=== PATIENT | male | born 1950 | race Caucasian/White ===

== ENCOUNTER 2018-08-27 08:30 | Inpatient (IN) | payer OTHER, MEDICARE ==
--- NOTE | 2018-08-22 13:28 | Diagnostic Imaging Report ---
Chest, 2 views, 08/22/2018. History: Preop, hip replacement surgery. Comparison: 07/08/2012. Findings: The cardiomediastinal silhouette and pulmonary vasculature are within normal limits. The lungs are clear without evidence of consolidation or pleural effusion. Degenerative changes are present within the thoracic spine. There are no acute osseous or soft tissue abnormalities. Impression: No acute cardiopulmonary abnormality. Signed by: Himanshu Brito on 08/22/2018 1:25 PM
[~2018-08-27] VITALS: Ht 185.4 cm; Wt 98.9 kg
[~2018-08-27 08:30] MED LIST: ALLOPURINOL100 MG PO; ALTACE10 M1 PO; ASPIR 8181 MG PO; ATORVASTATIN CA20 MG PO; GABAPENTIN300 MG PO; GLUCOPHAGE1000 MG PO; KLONOPIN2 MG PO; MULTIVITAMINS1 EAC7 PO; PRILOSEC20 MG PO; ROPIVACAINE 246.25 MG, EPINEPHRINE HCL 1:1000 1ML 0.5 MG, CLONIDINE HCL 0.08 MG, KETORO... INJ ONE; VITAMIN B-121000 MCG PO; VITAMIN D35000 UNIT PEG
[2018-08-27] MEDS ORDERED: TRANEXAMIC ACID 1,000 MG/10 ML ML ONE (08:39)
[2018-08-27] MEDS ORDERED: BACITRACIN 50,000 UNIT VIAL ONE (08:39)
--- OUTSIDE RECORDS SUMMARY | 2018-08-27 08:39 | XMS REPORT | Summary of Care ---
Author Organization Unknown Address Unknown Phone Unavailable Encounter [facility] Thais(ALFRED) [id number] Date(s): 11/01/13 - 11/01/[address] [facility] [address] [address] Discharge Diagnosis: Shortness of breath Discharge Diagnosis: Cough Discharge Disposition: Home Physician Attending: Cosme Valentine MD Reason for Visit DIFFICULTY BREATHING Vital Signs 1 2 3 Most recent to oldest [Reference Range]: 185.42 cm (11/01/13 12:58 AM) Height 98.0 DegF (11/01/13 3:46 AM) 97.9 DegF (11/01/13 1:47 AM) 97.8 DegF (11/01/13 12:58 AM) Temperature Oral [96.4-99.1 DegF] 146 mmHg *HI* (11/01/13 3:46 AM) 159 mmHg *HI* (11/01/13 1:47 AM) 167 mmHg *HI* (11/01/13 12:58 AM) Systolic Blood Pressure [90-140 mmHg] 88 mmHg (11/01/13 3:46 AM) 96 mmHg *HI* (11/01/13 1:47 AM) 90 mmHg (11/01/13 12:58 AM) Diastolic Blood Pressure [60-90 mmHg] 18 BRMIN (11/01/13 3:46 AM) 19 BRMIN (11/01/13 2:27 AM) 20 BRMIN (11/01/13 1:47 AM) Respiratory Rate [14-20 BRMIN] 96 bpm (11/01/13 3:46 AM) 84 bpm (11/01/13 1:47 AM) 87 bpm (11/01/13 12:58 AM) Peripheral Pulse Rate [60-100 bpm] 104.545 kg (11/01/13 12:58 AM) Weight 30.41 m2 (11/01/13 12:58 AM) Body Mass Index Problem List Condition Effective Dates Status Health Status Informant Chest 12/12/10 Active pain(Confirmed) Diabetes Active mellitus(Confirmed) DM (diabetes Resolved mellitus)(Confirmed) HTN - Active Hypertension(Confirm ed) Allergies, Adverse Reactions, Alerts Substance Reaction Severity Status codeine Active Medications DuoNeb inhalation solution 3 ml, Route: INHALATION, Drug Form: SOLN, Dosing Weight 104.545, kg, PRN, PRN Re spiratory Protocol, Start date: 11/01/13 2:17:00, Duration: 30 day, Stop date: 0 12/01/13 2:16:00 Notes: (Same as: Duoneb) Start Date: 11/01/13 Stop Date: 11/01/13 Status: Discontinued GI cocktail 30 mL, Route: PO, Dosing Weight 104.545, kg, ONCE, STAT, Start date: 11/01/13 3: 33:00, Stop date: 11/01/13 3:33:00 Start Date: 11/01/13 Stop Date: 11/01/13 Status: Completed Results ELECTROLYTES 1 2 3 Most recent to oldest [Reference Range]: 138 mEq/L (11/01/13 2:40 AM) Sodium Lvl [135-145 mEq/L] 3.8 mEq/L (11/01/13 2:40 AM) Potassium Lvl [3.5-5.1 mEq/L] 102 mEq/L (11/01/13 2:40 AM) Chloride Lvl [95-109 mEq/L] 25 mEq/L (11/01/13 2:40 AM) CO2 [24-32 mEq/L] 14.8 mEq/L (11/01/13 2:40 AM) AGAP [10.0-20.0 mEq/L] CHEM PANEL 1 2 3 Most recent to oldest [Reference Range]: 1.0 mg/dL (11/01/13 2:40 AM) Creatinine Lvl [0.5-1.4 mg/dL] 80 mL/min/1.73m2 1 *NA* (11/01/13 2:40 AM) eGFR 11 mg/dL (11/01/13 2:40 AM) BUN [7-22 mg/dL] 11 (11/01/13 2:40 AM) B/C Ratio [6-25] 154 mg/dL 2 *HI* (11/01/13 2:40 AM) Glucose Lvl [70-99 mg/dL] 6.6 g/dL (11/01/13 2:40 AM) Total Protein [6.4-8.4 g/dL] 3.8 g/dL (11/01/13 2:40 AM) Albumin Lvl [3.5-5.0 g/dL] 2.8 g/dL (11/01/13 2:40 AM) Globulin [2.0-4.0 g/dL] 1.4 (11/01/13 2:40 AM) A/G Ratio [0.7-1.6] 8.2 mg/dL *LOW* (11/01/13 2:40 AM) Calcium Lvl [8.5-10.5 mg/dL] 43 unit/L (11/01/13 2:40 AM) ALT [0-65 unit/L] 19 unit/L (11/01/13 2:40 AM) AST [0-37 unit/L] 65 unit/L (11/01/13 2:40 AM) Alk Phos [39-136 unit/L] 0.4 mg/dL (11/01/13 2:40 AM) Bili Total [0.2-1.3 mg/dL] 1Result Comment: The eGFR is calculated using the CKD-EPI formula. In most young, healthy individuals the eGFR will be >90 mL/min/1.73m2. The eGFR declines with age. An eGFR of 60-89 may be normal in some populations, particularly the elderly, for whom the CKD-EPI formula has not been extensively validated. Use of the eGFR is not recommended in the following populations: Individuals with unstable creatinine concentrations, including patients and those with serious co-morbid conditions. Patients with extremes in muscle mass or diet. The data above are obtained from the National Kidney Disease Education Program ( NKDEP) which additionally recommends that when the eGFR is used in patients with extremes of body mass index for purposes of drug dosing, the eGFR should be mul tiplied by the estimated BMI. 2Interpretive Data: Adult reference range values reflect the clinical guidelines of the [employer] [employer]. CARDIAC ENZYMES 1 2 3 Most recent to oldest [Reference Range]: 180 unit/L (11/01/13 5:43 AM) 160 unit/L (11/01/13 2:40 AM) Total CK [12-191 unit/L] 4.6 ng/mL *HI* (11/01/13 5:43 AM) 4.9 ng/mL *HI* (11/01/13 2:40 AM) CK MB [0.5-3.6 ng/mL] 3.1 *HI* (11/01/13 2:40 AM) CK MB Index [0.0-2.5] <0.02 ng/mL (11/01/13 5:43 AM) <0.02 ng/mL (11/01/13 2:40 AM) <0.02 ng/mL (11/01/13 2:40 AM) Troponin-I [0.00-0.40 ng/mL] TOXICOLOGY 1 2 3 Most recent to oldest [Reference Range]: .134 % 3 *NA* (11/01/13 2:40 AM) Etoh (%) 134 mg/dL 4 *NA* (11/01/13 2:40 AM) Ethanol Lvl 3Interpretive Data: Ethanol testing results should be used for medical purposes only. Negative Range: <0.003% Toxic Range: >0.25% 4Interpretive Data: Negative Range: <3 mg/dL Toxic Range: >250 mg/dL HEMATOLOGY 1 2 3 Most recent to oldest [Reference Range]: 5.1 K/CMM (11/01/13 2:40 AM) WBC [3.7-10.4 K/CMM] 4.39 M/CMM *LOW* (11/01/13 2:40 AM) RBC [4.70-6.10 M/CMM] 14.3 g/dL (11/01/13 2:40 AM) Hgb [14.0-18.0 g/dL] 41.9 % *LOW* (11/01/13 2:40 AM) Hct [42.0-54.0 %] 95.5 fL *HI* (11/01/13 2:40 AM) MCV [80.0-94.0 fL] 32.5 pg *HI* (11/01/13 2:40 AM) MCH [27.0-31.0 pg] 34.0 g/dL (11/01/13 2:40 AM) MCHC [32.0-36.0 g/dL] 13.2 % (11/01/13 2:40 AM) RDW [11.5-14.5 %] 198 K/CMM (11/01/13 2:40 AM) Platelet [133-450 K/CMM] 7.5 fL (11/01/13 2:40 AM) MPV [7.4-10.4 fL] 60.3 % (11/01/13 2:40 AM) Segs [45.0-75.0 %] 27.5 % (11/01/13 2:40 AM) Lymphocytes [20.0-40.0 %] 10.4 % (11/01/13 2:40 AM) Monocytes [2.0-12.0 %] 1.2 % (11/01/13 2:40 AM) Eosinophils [0.0-4.0 %] 0.6 % (11/01/13 2:40 AM) Basophils [0.0-1.0 %] 3.1 K/CMM (11/01/13 2:40 AM) Segs-Bands # [1.5-8.1 K/CMM] 1.4 K/CMM (11/01/13 2:40 AM) Lymphocytes # [1.0-5.5 K/CMM] 0.5 K/CMM (11/01/13 2:40 AM) Monocytes # [0.0-0.8 K/CMM] 0.1 K/CMM (11/01/13 2:40 AM) Eosinophils # [0.0-0.5 K/CMM] 13.1 seconds (11/01/13 2:40 AM) PT [12.0-14.7 seconds] 1.00 5 (11/01/13 2:40 AM) INR [0.85-1.17] 0.55 ug/mL FEU 6 *NA* (11/01/13 2:40 AM) D-Dimer 29.9 seconds 7 (11/01/13 2:40 AM) PTT [22.9-35.8 seconds] 5Interpretive Data: RECOMMENDED RANGES FOR PROTIME INR: 2.0-3.0 for most medical and surgical thromboembolic states. 2.5-3.5 for artificial heart valves and recurrent embolism. INR SHOULD BE USED ONLY FOR PATIENTS ON STABLE ANTICOAGULANT THERAPY. 6Interpretive Data: In DIC, quantitative D-Dimer is generally greater than 0.66 ug/mL FEU. Values of quantitative D-Dimer less than 0.40 ug/mL FEU have been reported to be associated with a low probability of deep vein thrombosis/pulmonary embolism. This test alone should not be used to rule out DVT/PE. 7Interpretive Data: Heparin Therapeutic Range: 57 - 92 Seconds Medications Administered During Your Visit No data available for this section Immunizations No data available for this section
--- OUTSIDE RECORDS SUMMARY | 2018-08-27 08:39 | XMS REPORT | Continuity of Care Document ---
Author Author [facility] Interface Address Unknown Phone Unavailable Problems Problem Status Onset Date Classification Date Reported Comments Source Discharge Diagnosis: Shortness of breath 11/01/2013 11/03/2013 [facility] Discharge Diagnosis: Cough 11/01/2013 11/03/2013 [facility] DIFFICULTY BREATHING Active 10/31/2013 [facility] SHORTNESS OF BREATH Active 12/13/2010 [facility] CHEST PAIN Active 12/13/2010 [facility] Chest pain Active 12/12/2010 Problem 11/03/2013 [facility] Diabetes mellitus Active Problem 11/03/2013 [facility] DM (<span ID="[id number]">Confirmed</span>) Resolved Problem 11/03/2013 [facility] HTN - Hypertension Active Problem 11/03/2013 [facility] Medications Medication Details Route Status Patient Instructions Ordering Provider Order Date Source GI cocktail 30 mL, Route: PO, Dosing Weight 104.545, kg, ONCE, STAT, Start date: 11/01/13 3:33:00, Stop date: 11/01/13 3:33:00 Inactive 11/01/2013 [facility] Albuterol 0.833 MG/ML / Ipratropium [place] 0.167 MG/ML Inhalant Solution [DuoNeb] 3 ml, Route: INHALATION, Drug Form: SOLN, Dosing Weight 104.545, kg, PRN, PRN Respiratory Protocol, Start date: 11/01/13 2:17:00, Duration: 30 day, Stop date: 12/01/13 2:16:00Notes: (Same as: Duoneb) Inactive 11/01/2013 [facility] Allergies, Adverse Reactions, Alerts Substance Category Reaction Severity Reaction type Status Date Reported Comments Source codeine Assertion Drug allergy Active [facility] Immunizations Immunization Date Given Site Status Last Updated Comments Source Results Order Name Results Value Reference Range Date Interpretation Comments Source CARDIAC ENZYMES CK MB 4.6 ng/mL 0.5 - 3.6 11/01/2013 [facility] CARDIAC ENZYMES Total CK 180 unit/L 12 - 191 11/01/2013 [facility] CARDIAC ENZYMES Troponin-I null 0.00 - 0.40 11/01/2013 [facility] CARDIAC ENZYMES CK MB Index 3.1 0.0 - 2.5 11/01/2013 [facility] CARDIAC ENZYMES CK MB 4.9 ng/mL 0.5 - 3.6 11/01/2013 [facility] CARDIAC ENZYMES Total CK 160 unit/L 12 - 191 11/01/2013 [facility] CARDIAC ENZYMES Troponin-I null 0.00 - 0.40 11/01/2013 [facility] CARDIAC ENZYMES Troponin-I null 0.00 - 0.40 11/01/2013 [facility] CHEM PANEL eGFR 80 mL/min/1.73m2 11/01/2013 1Result Comment: The eGFR is calculated using [...] from the National Kidney Disease Education Program (NKDEP) which additionally recommends that when the eGFR is used in patients with extremes of body mass index for purposes of drug dosing, the eGFR should be multiplied by the estimated BMI. [facility] CHEM PANEL Bili Total 0.4 mg/dL 0.2 - 1.3 11/01/2013 [facility] CHEM PANEL Alk Phos 65 unit/L 39 - 136 11/01/2013 [facility] CHEM PANEL CO2 25 meq/L 24 - 32 11/01/2013 [facility] CHEM PANEL Creatinine Lvl 1.0 mg/dL 0.5 - 1.4 11/01/2013 [facility] CHEM PANEL Potassium Lvl 3.8 meq/L 3.5 - 5.1 11/01/2013 [facility] CHEM PANEL Sodium Lvl 138 meq/L 135 - 145 11/01/2013 [facility] CHEM PANEL Chloride Lvl 102 meq/L 95 - 109 11/01/2013 [facility] CHEM PANEL Calcium Lvl 8.2 mg/dL 8.5 - 10.5 11/01/2013 [facility] CHEM PANEL Total Protein 6.6 g/dL 6.4 - 8.4 11/01/2013 [facility] CHEM PANEL Albumin Lvl 3.8 g/dL 3.5 - 5.0 11/01/2013 [facility] CHEM PANEL ALT 43 unit/L 0 - 65 11/01/2013 [facility] CHEM PANEL AST 19 unit/L 0 - 37 11/01/2013 [facility] CHEM PANEL BUN 11 mg/dL 7 - 22 11/01/2013 [facility] CHEM PANEL Glucose Lvl 154 mg/dL 70 - 99 11/01/2013 2Interpretive Data: Adult reference range values reflect the clinical guidelines of the [place] [employer]. [facility] CHEM PANEL B/C Ratio 11 6 - 25 11/01/2013 [facility] CHEM PANEL AGAP 14.8 meq/L 10.0 - 20.0 11/01/2013 [facility] CHEM PANEL Globulin 2.8 g/dL 2.0 - 4.0 11/01/2013 [facility] CHEM PANEL A/G Ratio 1.4 0.7 - 1.6 11/01/2013 [facility] PTT 29.9 s 22.9 - 35.8 11/01/2013 7Interpretive Data: Heparin Therapeutic Range: 57 - 92 Seconds [facility] PT 13.1 s 12.0 - 14.7 11/01/2013 [facility] INR 1.00 0.85 - 1.17 11/01/2013 5Interpretive Data: RECOMMENDED RANGES FOR PROTIME INR: 2.0-3.0 for most medical and surgical thromboembolic states. 2.5-3.5 for artificial heart valves and recurrent embolism. INR SHOULD BE USED ONLY FOR PATIENTS ON STABLE ANTICOAGULANT THERAPY. [facility] D-Dimer 0.55 ug/mL FEU 11/01/2013 6Interpretive Data: In DIC, quantitative D-Dimer is generally greater than 0.66 ug/mL FEU. Values of quantitative D-Dimer less than 0.40 ug/mL FEU have been reported to be associated with a low probability of deep vein thrombosis/pulmonary embolism. This test alone should not be used to rule out DVT/PE. [facility] Hct 41.9 % 42.0 - 54.0 11/01/2013 [facility] MCH 32.5 pg 27.0 - 31.0 11/01/2013 [facility] MCHC 34.0 g/dL 32.0 - 36.0 11/01/2013 [facility] MPV 7.5 fL 7.4 - 10.4 11/01/2013 [facility] Platelet 198 K/CMM 133 - 450 11/01/2013 [facility] RDW 13.2 % 11.5 - 14.5 11/01/2013 [facility] Hgb 14.3 g/dL 14.0 - 18.0 11/01/2013 [facility] RBC 4.39 M/CMM 4.70 - 6.10 11/01/2013 [facility] WBC 5.1 K/CMM 3.7 - 10.4 11/01/2013 [facility] MCV 95.5 fL 80.0 - 94.0 11/01/2013 [facility] Eosinophils # 0.1 K/CMM 0.0 - 0.5 11/01/2013 [facility] Monocytes # 0.5 K/CMM 0.0 - 0.8 11/01/2013 [facility] Lymphocytes # 1.4 K/CMM 1.0 - 5.5 11/01/2013 [facility] Segs 60.3 % 45.0 - 75.0 11/01/2013 [facility] Lymphocytes 27.5 % 20.0 - 40.0 11/01/2013 [facility] Basophils 0.6 % 0.0 - 1.0 11/01/2013 [facility] Eosinophils 1.2 % 0.0 - 4.0 11/01/2013 [facility] Monocytes 10.4 % 2.0 - 12.0 11/01/2013 [facility] Segs-Bands # 3.1 K/CMM 1.5 - 8.1 11/01/2013 [facility] Etoh (%) 0.134 % 11/01/2013 3Interpretive Data: Ethanol testing results should be used for medical purposes only. Negative Range: <0.003% Toxic Range: >0.25% [facility] TOXICOLOGY Ethanol Lvl 134 mg/dL 11/01/2013 4Interpretive Data: Negative Range: <3 mg/dL Toxic Range: >250 mg/dL [facility] Chest w contrast CT Chest w contrast CT NAME: RADHA HORNER : 1950 SEX: M Ordering Physician: Senait Hahn CT chest with contrast with high-resolution imaging through the pulmonary arteries during early portion of the contrast bolus: Nov 01, 2013 04:00:00 AM. CLINICAL INDICATION: Chest pain. Comparison Examination: 12/13/2010. FINDINGS: No evidence for pulmonary embolism. The tracheobronchial tree is unremarkable. No parenchymal lung abnormality identified bilaterally and no significant pleural effusion bilaterally. Calcified right hilar nodes. No mediastinal, hilar or axillary adenopathy. Small amount of calcification noted along the great vessels and small amount of coronary artery calcification. No evidence for thoracic aortic aneurysm or thoracic aortic dissection. Upper abdominal aortic calcification. No pericardial abnormality identified. Cholelithiasis. Small nonspecific portocaval node is similar to prior study. Right renal artery calcification. Views of the upper abdomen are otherwise unremarkable. CONCLUSIONS: 1. No evidence for pulmonary embolism. 2. Vascular calcification in the chest and upper abdomen as above. 3. Cholelithiasis. SL: 11/01/2013 - - Read by: Himanshu Ferrari MD Dictated Date/time: 11/01/13 04:20 Electronically Signed by: Himanshu Ferrari MD 11/01/13 04:55 FINAL REPORT [facility] Chest 2 views Chest 2 views NAME: RADHA HORNER : 1950 SEX: M Ordering Physician: Senait Hahn Chest 2 views : Nov 01, 2013 01:54:00 AM. CLINICAL INDICATION: Abnormal chest sounds. Comparison Examination: 12/13/2010. FINDINGS: Cardiac and mediastinal structures are stable. Degenerative changes seen about the thoracic spine. No focal infiltrate identified within the lungs, no edema, no pleural effusions and no pneumothorax. SL: 14 11/01/2013 - - Read by: Himanshu Ferrari MD Dictated Date/time: 11/01/13 02:02 Electronically Signed by: Himanshu Ferrari MD 11/01/13 02:04 FINAL REPORT [facility] Vital Signs Vital Sign Value Date Comments Source Systolic (mm Hg) 146 11/01/2013 [facility] Diastolic (mm Hg) 88 11/01/2013 [facility] Temperature Oral (F) 98.0 F 11/01/2013 [facility] Respitory Rate 18 11/01/2013 [facility] Heart Rate 96 11/01/2013 [facility] Respitory Rate 19 11/01/2013 [facility] Temperature Oral (F) 97.9 F 11/01/2013 [facility] Heart Rate 84 11/01/2013 [facility] Systolic (mm Hg) 159 11/01/2013 [facility] Respitory Rate 20 11/01/2013 [facility] Diastolic (mm Hg) 96 11/01/2013 [facility] Height 185.42 cm 11/01/2013 [facility] Weight 104.545 11/01/2013 [facility] BMI Calculated 30.41 11/01/2013 [facility] Temperature Oral (F) 97.8 F 11/01/2013 [facility] Heart Rate 87 11/01/2013 [facility] Diastolic (mm Hg) 90 11/01/2013 [facility] Systolic (mm Hg) 167 11/01/2013 [facility] Encounters Location Location Details Encounter Type Encounter Number Reason For Visit Attending Provider ADM Date DC Date Status Source [facility] OU [id number] CHEST PAIN BETY LIGHT 12/13/2010 12/13/2010 Active [facility] [id number] Cosme Valentine 11/01/2013 11/01/2013 [facility] Procedures Procedure Code Date Perfomer Comments Source
--- OUTSIDE RECORDS SUMMARY | 2018-08-27 08:39 | XMS REPORT ---
Author [facility] Address Unknown Phone Unavailable Care Team Providers Care Mail Deliverer Name Role Phone ELVA NAVARRO Unavailable Unavailable Problems This patient has no known problems. Allergies, Adverse Reactions, Alerts This patient has no known allergies or adverse reactions. Medications This patient has no known medications. Results Test Description Test Time Test Comments Text Results Atomic Results Result Comments CHEST 2 VIEWS 2018-08-22 13:24:00 [place] [address] Patient Name: RADHA HORNER MR #: [id number] : 1950 Age/Sex: 68/M Req #: [id number] Adm Physician: Ordered by: ELVA NAVARRO MD Report #: [id number] Location: OR Room/Bed: Procedure: [id number] DX/CHEST 2 VIEWS Exam Date: 08/22/18 Exam Time: 1251 REPORT STATUS: Signed Chest, 2 views, 08/22/2018. History: Preop, hip re placement surgery. Comparison: 07/08/2012. Findings: The cardiomediastinal silhouette and pulmonary vasculature are within normal limits. The lungs are clear without evidence of consolidation or pleural effusion. Degenerative changes are present within the thoracic spine. There are no acute osseous or soft tissue abnormalities. Impression: No acute cardiopulmonary abnormality. Signed by: Beth Brito on 08/22/2018 1:25 PM Dictated By: BETH BRITO MD 132 Transcribed By: MARY ANN on 08/22/181324 COPY TO: ELVA NAVARRO MD
[2018-08-27] MEDS ORDERED: SODIUM CHLORIDE 0.9% 500ML 500 ML ONE (08:40)
[2018-08-27] MEDS ORDERED: VITAMIN D1000 UNI1 PO (09:07)
[2018-08-27] MEDS ORDERED: CELECOXIB 200 MG CAP ONE (09:24)
[2018-08-27] MEDS ORDERED: CEFAZOLIN SOD 2 GM/D5W 50ML 50 ML IV ONE (09:24)
[2018-08-27] MEDS ORDERED: GABAPENTIN 300 MG CAP ONE (09:24)
[2018-08-27] MEDS ORDERED: DEXAMETHASONE SOD PHOS 10 MG/1 ML VIAL ONE (09:24)
[2018-08-27 09:25] LABS: BASOPHILS % 0.3 % (0.0-1.0); EOSINOPHILS # (AUTO) 0.1 (0.0-0.4); EOSINOPHILS % 1.4 % (0.0-6.0); HEMATOCRIT 40.5 % (38.2-49.6); HEMOGLOBIN 14.4 g/dL (14.0-18.0); LYMPHOCYTES # (AUTO) 1.5 (1.0-3.2); MEAN CORPUSCULAR HEMOGLOBIN 33.4 pg (28-32); MEAN CORPUSCULAR HGB CONC 35.6 g/dL (31-35); MONOCYTES # (AUTO) 0.5 (0.2-0.8); MONOCYTES % 8.5 % (4.4-11.3); NEUTROPHILS # (AUTO) 4.2 (2.1-6.9); NEUTROPHILS % 66.5 % (38.7-80.0); PLATELET COUNT 217 x10e3/uL (140-360); RED BLOOD COUNT 4.31 x10e6/uL (4.3-5.7); RED CELL DISTRIBUTION WIDTH 12.4 % (11.7-14.4)
[2018-08-27 09:46] LABS: ALANINE AMINOTRANSFERASE 21 IU/L (0-55); ALBUMIN/GLOBULIN RATIO 1.4 (0.8-2.0); ALKALINE PHOSPHATASE 74 IU/L (40-150); ANION GAP 12.2 mmol/L (8-16); BLOOD UREA NITROGEN 7 mg/dL (7-26); BUN/CREATININE RATIO 8 (6-25); CALCIUM 9.5 mg/dL (8.4-10.2); CARBON DIOXIDE 24 mmol/L (22-29); CHLORIDE 106 mmol/L (98-107); CREATININE, SERUM 0.89 mg/dL (0.72-1.25); EST GLOMERULAR FILTRATION RATE > 60 ML/MIN (60-); GLUCOSE 130 mg/dL (74-118); POTASSIUM 4.2 mmol/L (3.5-5.1); SODIUM 138 mmol/L (136-145)
[2018-08-27] MEDS ORDERED: BUPIVACAINE 7.5MG/ML /DEXTROSE 82.5MG/ML 2 ML AMP INJ ONE ×2 (09:46→11:38)
--- NOTE | 2018-08-27 10:19 | NUR ---
PATIENT DME AND HOME HEALTH COMPANIES PRE-ARRANGED BY DR. NAVARRO'S OFFICE. PATIENT WITH HOME HEALTH AND DME CONTACT INFORMATION. PATIENT AWARE TO CALL CM IF ANY PROBLEMS OCCUR WITHIN 3 DAYS POST- DISCHARGE. HOME HEALTH EXPLAINED IN DEPTH WITH SERVICES PROVIDED. PATIENT VERBALLY UNDERSTOOD. THE FOLLOWING HOME HEALTH AND DME COMPANY VERIFIED PATIENT IS ON SERVICE WITH THEM: [employer] : (WALKER WITH WHEELS, CPM, 3-IN-1 COM[employer]) (P) [phone] (F) [phone] CM SPOKE WITH CONCHIS AND CONFIRMED PATIENT HAS RECEIVED EQUIPMENT. PATIENT AWARE TO BRING WALKER TO HOSPITAL PRIOR TO DISCHARGE FOR SAFE MOBILITY. HOME CARE PROVIDERS (P) [phone] (F) [phone] CM SPOKE TO AMARI AND CONFIRMED PATIENT IS ON SERVICES AND WILL RECEIVE SERVICES DAY AFTER DISCHARGE FROM HOSPITAL. Addendum: 08/27/18 at 1023 by Farrukh Correa CM DROSSER AT [facility]: FARRUKH DONAHUE [phone]
[2018-08-27] MEDS ORDERED: VANCOMYCIN HCL 1,000 MG ONE (10:39)
[2018-08-27] MEDS: SODIUM CHLORIDE 0.9% 1000ML 1,000 ML IV SCH ×2 (12:58→21:34)
[2018-08-27] MEDS ORDERED: DOCUSATE SODIUM 100 MG CAP PO PRN (13:00)
[2018-08-27] MEDS ORDERED: HYDROCODONE/APAP 7.5MG-325MG 1 EA TAB PO PRN (13:00)
[2018-08-27] MEDS ORDERED: HYDROCODONE/APAP 5MG-325MG TAB PO PRN (13:00)
[2018-08-27] MEDS ORDERED: ACETAMINOPHEN 650 MG SUPP PR PRN (13:00)
[2018-08-27] MEDS ORDERED: ZOLPIDEM TARTRATE 5 MG TAB PO PRN (13:00)
[2018-08-27] MEDS ORDERED: ONDANSETRON HCL INJ 2MG/ML 2ML 2 MG/ML VIAL IV PRN (13:00)
[2018-08-27] MEDS ORDERED: PROMETHAZINE HCL (IM) 25 MG/ML VIAL INJ PRN (13:00)
[2018-08-27] MEDS ORDERED: KETOROLAC TROMETHAMINE 30 MG/ML VIAL IV PRN (13:00)
[2018-08-27] MEDS ORDERED: DIPHENHYDRAMINE HCL INJ 50 MG/ML VIAL IM/IV PRN (13:00)
[2018-08-27] MEDS ORDERED: FENTANYL CITRATE/PF 100MCG/2 ML INJ ONE ×2 (13:24→13:46)
[2018-08-27] MEDS ORDERED: MIDAZOLAM HCL 2 MG/2 ML VIAL ONE (13:24)
--- NOTE | 2018-08-27 14:01 | Diagnostic Imaging Report ---
Pelvic radiograph-1 view History: Postoperative. Findings: Somewhat limited study secondary to portable technique and soft tissue attenuation. Status post left total hip arthroplasty with prosthetic components in anatomic alignment. Overlying subcutaneous emphysema and surgical skin devante are present. Hardware appears intact. There are moderate degenerative changes in the right hip. No evidence of acute fracture. IMPRESSION: Status post left total hip arthroplasty as above. Signed by: Dr. Braulio Falcon MD on 08/27/2018 1:58 PM
--- NOTE | 2018-08-27 14:40 | NUR ---
RECEIVED PATIENT FROM RECOVERY. PATIENT A/O X3, EVEN RESPIRATIONS ON 4LNC. VITAL SIGNS STABLE. BOWEL SOUNDS ACTIVE, NO EDEMA. LEFT HIP DRESSING CLEAN DRY AND INTACT. RIGHT HAND 20 GAUGE IV WITH IVF @ 100 CC/HR. LENCHO HOSE ON RIGHT LEG. FOOT PUMPS BILATERALLY. PATIENT DUE TO VOID AT THIS TIME. BED LOW, WHEELS LOCKED, SIDE RAILS X2. CALL LIGHT IN REACH WILL CONTINUE TO MONITOR PATIENT.
[2018-08-27 14:58] VITALS: BP 130/67
[2018-08-27 15:07] VITALS: BP 130/67
[2018-08-27 15:12] VITALS: BP 130/67
[2018-08-27] MEDS: CEFAZOLIN SOD 1 GM/NS 50ML 50 ML IV SCH ×2 (15:42→21:34)
[2018-08-27 16:00] VITALS: BP 103/56
[2018-08-27] MEDS: RAMIPRIL 5 MG CAP PO SCH (16:48)
[2018-08-27] MEDS ORDERED: PROPOFOL IV EMULSION 10 MG/ML 20 ML VIAL ONE (17:01)
[2018-08-27] MEDS ORDERED: EPHEDRINE SULFATE INJ 50 MG/10 ML SYR ONE (17:01)
[2018-08-27] MEDS ORDERED: ONDANSETRON HCL INJ 2MG/ML 2ML 2 MG/ML VIAL ONE (17:01)
[2018-08-27] MEDS ORDERED: LIDOCAINE HCL 2% LOCAL INJ 5 ML SDV VIAL INJ ONE (17:01)
[2018-08-27] MEDS ORDERED: SEVOFLURANE INHAL SOLN 250 ML PEN BTL ONE (17:01)
[2018-08-27] MEDS ORDERED: ACETAMINOPHEN 1000 MG/100 ML IV ONE (17:01)
[2018-08-27] MEDS ORDERED: DEXAMETHASONE SOD PHOS INJ 4 MG/ML VIAL ONE (17:01)
[2018-08-27] MEDS: CELECOXIB 100 MG CAP PO SCH (17:09)
[2018-08-27] MEDS: ACETAMINOPHEN 1000 MG/100 ML IV SCH ×2 (17:09→23:54)
[2018-08-27] MEDS: METFORMIN HCL 500 MG TAB PO SCH (17:09)
[2018-08-27] MEDS: ASPIRIN 325 MG TAB PO SCH (17:09)
--- NOTE | 2018-08-27 19:10 | NUR ---
Received patient awake on bed, not in distress, no complaints of pain at this time, call light within easy reach, advised to call for assistance, will continue to monitor
--- NOTE | 2018-08-27 20:00 | NUR ---
IV inserted to the left hand 20G, flushed, with blood return, patient tolerated well
[2018-08-27] MEDS: GABAPENTIN 300 MG CAP PO SCH (20:13)
[2018-08-27 20:25] VITALS: BP 144/68
[2018-08-27 21:00] VITALS: BP 144/68
[2018-08-27] MEDS ORDERED: ATORVASTATIN 20 MG TAB PO SCH (21:00)
--- NOTE | 2018-08-27 23:30 | NUR ---
patient got up, voided freely, pain medication given
[2018-08-28] VITALS: BP 116/66
--- NOTE | 2018-08-28 00:05 | Operative Report ---
DATE OF PROCEDURE: 08/27/2018 SURGEON: Robert Breen MD STRATEGIC INTELLIGENCE OFFICER: Martinez Thrasher PA-C PREOPERATIVE DIAGNOSIS: Osteoarthritis, left hip. POSTOPERATIVE DIAGNOSIS: Osteoarthritis, left hip. PROCEDURE: Left total hip arthroplasty. 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 The findings and options have been discussed. We plan on initiating treatment with a left total hip replacement. The risks and benefits have been explained. The recovery has been discussed. He states he understands and wishes to proceed. PROCEDURE IN DETAIL: The patient was brought to the Operating Room and given a spinal anesthetic. He received prophylactic antibiotics and tranexamic acid in the holding area. He was then placed under a light general anesthetic. He was positioned in the right lateral decubitus position. His left hip was prepped and draped in a sterile manner. A preoperative time-out was performed. A limited incision posterior approach was made to the left hip. Care was taken to avoid injury to the sciatic nerve. A deep self-retaining Charnley retractor was placed. Hemostasis was obtained with electrocautery. The posterior capsule was carefully exposed. Dissection was challenging secondary to his severe contracture. The posterior capsule and short external rotators were released. The hip was dislocated. An oscillating saw was used to resect the humeral head. Complete loss of articular cartilage was noted. Acetabular retractors were carefully placed. Again, some challenges for exposure were encountered secondary to quite significant contractures. The true floor of the acetabulum was established with a 46 mm reamer. A [employer] System was used throughout the case. The hip was thoroughly irrigated with a shower tip pulsatile lavage and a spray mixture of polymyxin and vancomycin spray. Hemispherical bleeding cancellous bone was accomplished with a 55 mm reamer. An OsseoTi 56 mm outer diameter socket was impacted into place. Good bone quality was encountered. Fixation was augmented with a single 25 mm cancellous screw. A highly cross-linked polyethylene liner with no posterior elevation and a 36 mm inner diameter was then seated into place. Care was taken to make sure that there was no evidence of soft tissue interposition. The socket was then packed with a moistly soaked lap sponge. A large anterior osteophyte was removed with a curved osteotome. Attention was then directed towards the proximal femur. A box cutting osteotome and taper pin reamer were then used to establish entry to the femoral canal. The taper lock broaches were impacted into place. A size 15 stem had good canal fill and rotational stability. Trial reductions were performed. A standard 36 mm head was felt to provide optimal stability and baptism of limb length. The trial implants were removed. A 100 mL premixed pericapsular NILAM injection was placed around the surrounding soft tissue. The implants were seated after thoroughly irrigating the hip further with a shower tip pulsatile lavage. A standard 36 mm ceramic head was seated onto a clean and dry trunnion. The hip was relocated for a final time. The posterior capsule was repaired with #2 Ethibond. A 500 mg of vancomycin powder was then placed around the capsule. The gluteal fascia was closed with interrupted #2 Ethibond. The skin was closed with subcuticular Vicryl and devante. A sterile bandage was applied. He was returned to the supine position, extubated, and transported to the recovery room in stable condition. Estimated blood loss was 50 mL. At the end of the procedure, all needle and sponge counts were correct. Robert Breen MD DR/KONRAD /[id number]
[2018-08-28 04:17] VITALS: BP 130/62
[2018-08-28] MEDS: ACETAMINOPHEN 1000 MG/100 ML IV SCH ×3 (05:59→11:34)
[2018-08-28] MEDS: CEFAZOLIN SOD 1 GM/NS 50ML 50 ML IV SCH (06:16)
[2018-08-28 06:29] LABS: HEMATOCRIT 34.1 % (38.2-49.6); HEMOGLOBIN 11.7 g/dL (14.0-18.0)
[2018-08-28] MEDS: SODIUM CHLORIDE 0.9% 1000ML 1,000 ML IV SCH (07:39)
[2018-08-28 07:58] VITALS: BP 126/60
[2018-08-28] MEDS: RAMIPRIL 5 MG CAP PO SCH (08:07)
[2018-08-28] MEDS: GABAPENTIN 300 MG CAP PO SCH (08:07)
[2018-08-28] MEDS: ASPIRIN 325 MG TAB PO SCH (08:07)
[2018-08-28] MEDS: CELECOXIB 100 MG CAP PO SCH (08:07)
[2018-08-28] MEDS: METFORMIN HCL 500 MG TAB PO SCH (08:07)
--- NOTE | 2018-08-28 08:08 | NUR ---
ASSISTED PT TO SIT IN CHAIR AT THIS TIME FOR BREAKFAST. CALL LIGHT WITHIN REACH. INSTRUCTED TO CALL FOR ASSISTANCE. PT VERBALIZED UNDERSTANDING.
[2018-08-28] MEDS ORDERED: ONDANSETRON HCL 4 MG ORAL DISINTEGRATING TAB PO PRN (08:30)
[2018-08-28] MEDS ORDERED: OMEPRAZOLE 20 MG CAP PO SCH (09:00)
[2018-08-28] MEDS ORDERED: ALLOPURINOL 300 MG TAB PO SCH (09:00)
[2018-08-28] MEDS ORDERED: CYANOCOBALAMIN 1,000 MCG TAB PO SCH (09:00)
[2018-08-28] MEDS ORDERED: CHOLECALCIFEROL 1,000 UNIT TAB PO SCH (09:00)
[2018-08-28 11:36] VITALS: BP 120/58
--- NOTE | 2018-08-28 11:43 | Consultation ---
DATE OF CONSULTATION: REASON FOR CONSULTATION: Postop medical management. HISTORY OF PRESENT ILLNESS: The patient is a 68-year-old gentleman, who is status post left hip arthroplasty for end-stage osteoarthritis of the left hip. He is doing well postoperatively with minimal pain. He denies any fevers, chills, nausea, vomiting, shortness of breath, dizziness, or chest pain on review of systems. PAST MEDICAL HISTORY: Significant for gout, diabetes, hyperlipidemia, and hypertension. MEDICATIONS: See MAR. ALLERGIES: NONE. SOCIAL HISTORY: . Former smoker, quit 12 years ago. Nondrinker. FAMILY HISTORY: Noncontributory at this time. PHYSICAL EXAMINATION: VITAL SIGNS: Temperature 97.0, pulse 81, blood pressure 130/62, and pulse ox 95% on room air. GENERAL: No apparent distress. CARDIOVASCULAR: Regular rate and rhythm. LUNGS: Clear to auscultation bilaterally. NECK: Supple. No lymphadenopathy. ABDOMEN: Good bowel sounds. Soft, nontender. EXTREMITIES: No clubbing or cyanosis. NEUROLOGIC: Nonfocal. ASSESSMENT AND PLAN: 1. Anemia. Check a CBC. 2. Left hip pain. We will continue with physical therapy and postoperative care. 3. Hypertension. Continue with his current medicines and monitoring his blood pressure. 4. Diabetes. Continue to monitor sugars and use his home medicine. 5. Hyperlipidemia. Continue with his home medication. 6. Gout. We will also continue with his allopurinol. Please see hospital chart for full details. MD LOUIS Sofia/KONRAD /[id number]
--- NOTE | 2018-08-28 12:14 | NUR ---
CM SPOKE TO PATIENT AT BEDSIDE REGARDING HOME HEALTH CONFIRMATION FOR HOME HEALTH SERVICES. PATIENT SIGNED CHOICE. CHOICE PLACED IN CHART. COPY OF HOME HEALTH AND DME CONTACT INFORMATION GIVEN TO PATIENT AND PLACED IN TRANSITION CARE FOLDER. EQUIPMENT AT BEDSIDE. [facility] SPOKE TO AMAR[facility] AND CONFIRMED PATIENT TO DISCHARGE TODAY. HOME HEALTH READY TO ACCEPT AND WILL SEE PATIENT 08/29.
[2018-08-28] MEDS ORDERED: ACETAMINOPHEN 1000 MG/100 ML IV PRN (13:00)
[2018-08-28] MEDS ORDERED: CELECOXIB 200 MG CAP PO SCH (17:00)
== END 2018-08-28 12:05 | disposition home health service (06) | DRG 470 ==
LOC: OR 08:30 → PACU V 13:00 → MED/SURG 14:34
PROVIDERS: ADMIT Specialist; ATTEND Specialist
PROC: 0SRB04A Replacement of Left Hip Joint with Ceramic on Polyethylene Synthetic Substitute, Uncemented, Open Approach (ICD-10-PCS; principal; 2018-08-27 11:00)
DX: M16.12 Unilateral primary osteoarthritis, left hip (principal); E11.42 Type 2 diabetes mellitus with diabetic polyneuropathy; I10 Essential (primary) hypertension; Z87.891 Personal history of nicotine dependence; M1A.9XX0 Chronic gout, unspecified, without tophus (tophi); M17.0 Bilateral primary osteoarthritis of knee; E78.5 Hyperlipidemia, unspecified; D64.9 Anemia, unspecified; Z79.82 Long term (current) use of aspirin; Z79.84 Long term (current) use of oral hypoglycemic drugs
CPT/HCPCS: 36415; 71046; 72170; 80053; 82948; 85014; 85018; 85025; 86850; 86900; 86920; J0171; J0690; J1100; J1885; J2001; J2250; J2405; J2795; J3370; J7030; J7040

== ENCOUNTER 2022-07-07 17:38 | Inpatient (IN) | payer MEDICARE, OTHER ==
[~2022-07-07] VITALS: Ht 185.4 cm; Wt 84.4 kg
[2022-07-07 08:00] VITALS: BP 127/66
[~2022-07-07 17:38] MED LIST changes: -ROPIVACAINE 246.25 MG, EPINEPHRINE HCL 1:1000 1ML 0.5 MG, CLONIDINE HCL 0.08 MG, KETORO... INJ ONE; +VITAMIN D1000 UNI1 PO
[2022-07-07] MEDS ORDERED: SODIUM CHLORIDE 0.9% 1000ML 1,000 ML IV ONE (18:00)
[2022-07-07 18:05] LABS: BASOPHILS % 0.2 % (0.0-1.0); EOSINOPHILS % 0.4 % (0.0-6.0); HEMATOCRIT 36.4 % (38.2-49.6); HEMOGLOBIN 12.3 g/dL (14.0-18.0); LYMPHOCYTES # (AUTO) 0.9 (1.0-3.2); MEAN CORPUSCULAR HGB CONC 33.8 g/dL (31-35); MEAN CORPUSCULAR VOLUME 91.7 fL (81-99); MONOCYTES # (AUTO) 0.7 (0.2-0.8); MONOCYTES % 12.9 % (4.4-11.3); NEUTROPHILS # (AUTO) 3.7 (2.1-6.9); NEUTROPHILS % 68.6 % (38.7-80.0); PLATELET COUNT 167 x10e3/uL (140-360); RED BLOOD COUNT 3.97 x10e6/uL (4.3-5.7); RED CELL DISTRIBUTION WIDTH 12.9 % (11.7-14.4)
[2022-07-07 18:13] LABS: ALBUMIN 3.4 g/dL (3.5-5.0); ALBUMIN/GLOBULIN RATIO 1.1 (0.8-2.0); ANION GAP 13.2 mmol/L (8-16); CALCIUM 8.9 mg/dL (8.4-10.2); CREATININE, SERUM 1.36 mg/dL (0.72-1.25); POTASSIUM 4.2 mmol/L (3.5-5.1)
[2022-07-07] MEDS ORDERED: ONDANSETRON HCL INJ 2MG/ML 2ML 2 MG/ML VIAL IV PRN (18:45)
[2022-07-07] MEDS ORDERED: SODIUM CHLORIDE FLUSH 10 ML SYR INJ PRN (18:45)
[2022-07-07] MEDS: Vancomycin IV 1 GM in SODIUM CHLORIDE 0.9% 250ML 250 ML IV SCH (18:57)
[2022-07-07] MEDS ORDERED: LEXAPRO10 MG PO (20:49)
[2022-07-07 21:00] VITALS: BP 105/56
[2022-07-07] MEDS ORDERED: DEXTROSE 50% SYRINGE 50 ML IV PRN (21:00)
[2022-07-07] MEDS: INSULIN REGULAR, HUMAN 100 UNIT/1 ML SQ SCH (21:00)
[2022-07-07] MEDS: ESCITALOPRAM OXALATE 10 MG TAB PO SCH (21:59)
[2022-07-07] MEDS: ATORVASTATIN 20 MG TAB PO SCH (21:59)
[2022-07-07] MEDS: GABAPENTIN 300 MG CAP PO SCH (21:59)
[2022-07-07] MEDS: SODIUM CHLORIDE 0.9% 1000ML 1,000 ML IV SCH (22:00)
[2022-07-07 22:10] VITALS: BP 139/62
[2022-07-08] VITALS (7 sets, daily range): BP systolic 101–127; BP diastolic 56–66
[2022-07-08] MEDS: Vancomycin IV 1 GM in SODIUM CHLORIDE 0.9% 250ML 250 ML IV SCH ×2 (05:10→17:05)
[2022-07-08] MEDS: OMEPRAZOLE 20 MG CAP PO SCH (05:12)
[2022-07-08 06:50] LABS: BASOPHILS % 0.2 % (0.0-1.0); EOSINOPHILS % 0.2 % (0.0-6.0); HEMOGLOBIN 12.1 g/dL (14.0-18.0); LYMPHOCYTES # (AUTO) 0.7 (1.0-3.2); LYMPHOCYTES % 13.7 % (18.0-39.1); MEAN CORPUSCULAR HEMOGLOBIN 30.9 pg (28-32); MEAN CORPUSCULAR HGB CONC 33.6 g/dL (31-35); MEAN CORPUSCULAR VOLUME 92.1 fL (81-99); MONOCYTES # (AUTO) 0.7 (0.2-0.8); MONOCYTES % 13.5 % (4.4-11.3); NEUTROPHILS # (AUTO) 3.7 (2.1-6.9); PLATELET COUNT 153 x10e3/uL (140-360); RED BLOOD COUNT 3.91 x10e6/uL (4.3-5.7); RED CELL DISTRIBUTION WIDTH 13.1 % (11.7-14.4)
[2022-07-08 07:17] LABS: ANION GAP 11.2 mmol/L (8-16); CALCIUM 8.6 mg/dL (8.4-10.2); CREATININE, SERUM 0.92 mg/dL (0.72-1.25); POTASSIUM 4.2 mmol/L (3.5-5.1)
[2022-07-08] MEDS: INSULIN REGULAR, HUMAN 100 UNIT/1 ML SQ SCH ×4 (07:30→21:00)
[2022-07-08] MEDS: GABAPENTIN 300 MG CAP PO SCH ×3 (09:26→21:44)
[2022-07-08] MEDS: CYANOCOBALAMIN 1,000 MCG TAB PO SCH (09:26)
[2022-07-08] MEDS: CHOLECALCIFEROL 1,000 UNIT TAB PO SCH (09:27)
[2022-07-08] MEDS: RAMIPRIL 5 MG CAP PO SCH ×2 (09:27→16:02)
[2022-07-08] MEDS: MULTIVITAMINS/MINERALS TAB PO SCH (09:28)
[2022-07-08] MEDS: ASPIRIN 81 MG CHEW TAB PO SCH (09:28)
[2022-07-08] MEDS: ACETAMINOPHEN 325 MG TAB PO PRN (09:28)
[2022-07-08] MEDS ORDERED: GADOBENATE DIMEGLUMINE 1 ML IV ONE (16:04)
[2022-07-08] MEDS: SODIUM CHLORIDE 0.9% 1000ML 1,000 ML IV SCH (17:05)
[2022-07-08] MEDS: ESCITALOPRAM OXALATE 10 MG TAB PO SCH (21:44)
[2022-07-08] MEDS: ATORVASTATIN 20 MG TAB PO SCH (21:44)
[2022-07-09] VITALS (8 sets, daily range): BP systolic 102–135; BP diastolic 53–70
[2022-07-09] MEDS: Vancomycin IV 1 GM in SODIUM CHLORIDE 0.9% 250ML 250 ML IV SCH ×2 (05:41→16:42)
[2022-07-09] MEDS: OMEPRAZOLE 20 MG CAP PO SCH (05:44)
[2022-07-09] MEDS: INSULIN REGULAR, HUMAN 100 UNIT/1 ML SQ SCH ×4 (07:30→21:00)
[2022-07-09] MEDS: GABAPENTIN 300 MG CAP PO SCH ×3 (08:51→22:02)
[2022-07-09] MEDS: RAMIPRIL 5 MG CAP PO SCH ×2 (08:52→16:43)
[2022-07-09] MEDS: MULTIVITAMINS/MINERALS TAB PO SCH (08:52)
[2022-07-09] MEDS: CHOLECALCIFEROL 1,000 UNIT TAB PO SCH (08:52)
[2022-07-09] MEDS: ASPIRIN 81 MG CHEW TAB PO SCH (08:52)
[2022-07-09] MEDS: CYANOCOBALAMIN 1,000 MCG TAB PO SCH (08:52)
[2022-07-09] MEDS: BACITRACIN ZINC 15 GM OINT TOP SCH (12:58)
[2022-07-09] MEDS: SODIUM CHLORIDE 0.9% 1000ML 1,000 ML IV SCH (14:12)
[2022-07-09] MEDS: ACETAMINOPHEN 325 MG TAB PO PRN (18:00)
[2022-07-09 21:39] LABS: CLARITY,URINE CLEAR (CLEAR); COLOR,URINE YELLOW (YELLOW); KETONES,URINE NEGATIVE (NEGATIVE); LEUKOCYTE ESTERASE ,URINE NEGATIVE (NEGATIVE); NITRITE,URINE NEGATIVE (NEGATIVE); PROTEIN,URINE DIPSTICK NEGATIVE (NEGATIVE)
[2022-07-09 21:58] LABS: BACTERIA,URINE RARE /HPF; EPITHELIAL CELLS,URINE RARE /LPF; WBC,URINE (MAN) 0-5 /HPF (0-5)
[2022-07-09] MEDS: ESCITALOPRAM OXALATE 10 MG TAB PO SCH (22:02)
[2022-07-09] MEDS: ATORVASTATIN 20 MG TAB PO SCH (22:02)
[2022-07-10] VITALS (8 sets, daily range): BP systolic 100–138; BP diastolic 55–86
[2022-07-10] MEDS: Vancomycin IV 1 GM in SODIUM CHLORIDE 0.9% 250ML 250 ML IV SCH ×2 (05:34→18:39)
[2022-07-10] MEDS: OMEPRAZOLE 20 MG CAP PO SCH (05:34)
[2022-07-10] MEDS: ACETAMINOPHEN 325 MG TAB PO PRN (06:03)
[2022-07-10] MEDS: INSULIN REGULAR, HUMAN 100 UNIT/1 ML SQ SCH ×4 (08:30→20:35)
[2022-07-10] MEDS: ASPIRIN 81 MG CHEW TAB PO SCH (08:39)
[2022-07-10] MEDS: BACITRACIN ZINC 15 GM OINT TOP SCH (08:39)
[2022-07-10] MEDS: GABAPENTIN 300 MG CAP PO SCH ×3 (08:39→20:49)
[2022-07-10] MEDS: CYANOCOBALAMIN 1,000 MCG TAB PO SCH (08:39)
[2022-07-10] MEDS: CHOLECALCIFEROL 1,000 UNIT TAB PO SCH (08:39)
[2022-07-10] MEDS: MULTIVITAMINS/MINERALS TAB PO SCH (08:39)
[2022-07-10] MEDS: SODIUM CHLORIDE 0.9% 1000ML 1,000 ML IV SCH (08:40)
[2022-07-10] MEDS: RAMIPRIL 5 MG CAP PO SCH ×2 (08:40→17:50)
[2022-07-10] MEDS ORDERED: ONDANSETRON HCL 4 MG ORAL DISINTEGRATING TAB SL PRN (13:45)
[2022-07-10] MEDS: ESCITALOPRAM OXALATE 10 MG TAB PO SCH (20:52)
[2022-07-10] MEDS: ATORVASTATIN 20 MG TAB PO SCH (20:52)
[2022-07-11] VITALS (8 sets, daily range): BP systolic 106–142; BP diastolic 63–78
[2022-07-11] MEDS: ACETAMINOPHEN 325 MG TAB PO PRN (01:12)
[2022-07-11] MEDS: SODIUM CHLORIDE 0.9% 1000ML 1,000 ML IV SCH (05:25)
[2022-07-11] MEDS: OMEPRAZOLE 20 MG CAP PO SCH (06:02)
[2022-07-11] MEDS: Vancomycin IV 1 GM in SODIUM CHLORIDE 0.9% 250ML 250 ML IV SCH ×2 (06:03→17:08)
[2022-07-11 06:10] LABS: BASOPHILS % 0.5 % (0.0-1.0); EOSINOPHILS % 0.7 % (0.0-6.0); HEMATOCRIT 32.4 % (38.2-49.6); HEMOGLOBIN 10.6 g/dL (14.0-18.0); LYMPHOCYTES # (AUTO) 1.1 (1.0-3.2); MEAN CORPUSCULAR HEMOGLOBIN 30.3 pg (28-32); MEAN CORPUSCULAR HGB CONC 32.7 g/dL (31-35); MEAN CORPUSCULAR VOLUME 92.6 fL (81-99); MONOCYTES # (AUTO) 0.8 (0.2-0.8); MONOCYTES % 20.8 % (4.4-11.3); NEUTROPHILS # (AUTO) 2.1 (2.1-6.9); PLATELET COUNT 141 x10e3/uL (140-360)
[2022-07-11 06:52] LABS: ANION GAP 12.5 mmol/L (8-16); BLOOD UREA NITROGEN < 5 mg/dL (7-26); CALCIUM 8.7 mg/dL (8.4-10.2); CARBON DIOXIDE 26 mmol/L (22-29); CHLORIDE 105 mmol/L (98-107); CHOL/HDL RATIO 2.6 (3.9-4.7); CHOLESTEROL 75 MD/DL (0-199); CREATININE, SERUM 0.82 mg/dL (0.72-1.25); GLUCOSE 94 mg/dL (74-118); HDL CHOLESTEROL 29 MG/DL (40-60); LDL CHOLESTEROL 34 MG/DL (60-130); MAGNESIUM 1.6 MG/DL (1.3-2.1); PHOSPHORUS 4.2 MG/DL (2.3-4.7); POTASSIUM 3.5 mmol/L (3.5-5.1); SODIUM 140 mmol/L (136-145); TRIGLYCERIDES 58 MG/DL (0-149)
[2022-07-11 07:00] LABS: THYROID STIMULATING HORMONE 1.652 uIU/mL (0.350-4.940)
[2022-07-11 07:07] LABS: BUN/CREATININE RATIO 6 (6-25)
[2022-07-11] MEDS: INSULIN REGULAR, HUMAN 100 UNIT/1 ML SQ SCH ×4 (07:30→21:00)
[2022-07-11 08:32] LABS: LYMPHOCYTES % (MANUAL) 25 % (19-48); MONOCYTES % (MANUAL) 22 % (3.4-9.0); NEUTROPHILS % (MANUAL) 53 % (40-74); PLATELET ESTIMATE ADEQUATE; PLATELET MORPHOLOGY COMMENT NORMAL; RBC MORPHOLOGY COMMENT NORMAL
[2022-07-11] MEDS: RAMIPRIL 5 MG CAP PO SCH ×2 (09:08→17:07)
[2022-07-11] MEDS: CHOLECALCIFEROL 1,000 UNIT TAB PO SCH (09:08)
[2022-07-11] MEDS: GABAPENTIN 300 MG CAP PO SCH ×3 (09:08→21:28)
[2022-07-11] MEDS: MULTIVITAMINS/MINERALS TAB PO SCH (09:08)
[2022-07-11] MEDS: CYANOCOBALAMIN 1,000 MCG TAB PO SCH (09:08)
[2022-07-11] MEDS: BACITRACIN ZINC 15 GM OINT TOP SCH (09:09)
[2022-07-11] MEDS: ASPIRIN 81 MG CHEW TAB PO SCH (09:09)
[2022-07-11] MEDS ORDERED: MAGNESIUM SULFATE 2GM/50ML 50 ML IV ONE (12:00)
[2022-07-11] MEDS ORDERED: POTASSIUM CHLORIDE 20 MEQ TAB CR PO ONE (12:25)
[2022-07-11] MEDS: ESCITALOPRAM OXALATE 10 MG TAB PO SCH (21:28)
[2022-07-11] MEDS: ATORVASTATIN 20 MG TAB PO SCH (21:28)
[2022-07-12] VITALS (8 sets, daily range): BP systolic 116–133; BP diastolic 67–87
[2022-07-12] MEDS: ACETAMINOPHEN 325 MG TAB PO PRN ×2 (01:40→20:33)
[2022-07-12] MEDS: OMEPRAZOLE 20 MG CAP PO SCH (05:39)
[2022-07-12 06:00] LABS: BASOPHILS % 0.5 % (0.0-1.0); EOSINOPHILS % 0.5 % (0.0-6.0); HEMATOCRIT 34.8 % (38.2-49.6); HEMOGLOBIN 11.5 g/dL (14.0-18.0); LYMPHOCYTES # (AUTO) 1.2 (1.0-3.2); LYMPHOCYTES % 30.4 % (18.0-39.1); MEAN CORPUSCULAR HEMOGLOBIN 30.5 pg (28-32); MEAN CORPUSCULAR VOLUME 92.3 fL (81-99); MONOCYTES # (AUTO) 0.5 (0.2-0.8); MONOCYTES % 12.3 % (4.4-11.3); NEUTROPHILS # (AUTO) 2.1 (2.1-6.9); PLATELET COUNT 173 x10e3/uL (140-360); RED BLOOD COUNT 3.77 x10e6/uL (4.3-5.7); RED CELL DISTRIBUTION WIDTH 12.5 % (11.7-14.4)
[2022-07-12 06:28] LABS: ANION GAP 13.6 mmol/L (8-16); CALCIUM 8.8 mg/dL (8.4-10.2); CARBON DIOXIDE 26 mmol/L (22-29); CHLORIDE 104 mmol/L (98-107); CREATININE, SERUM 0.87 mg/dL (0.72-1.25); GLUCOSE 85 mg/dL (74-118); MAGNESIUM 1.9 MG/DL (1.3-2.1); POTASSIUM 3.6 mmol/L (3.5-5.1); SODIUM 140 mmol/L (136-145)
[2022-07-12 06:33] LABS: BLOOD UREA NITROGEN < 2 mg/dL (7-26)
[2022-07-12] MEDS: Vancomycin IV 1 GM in SODIUM CHLORIDE 0.9% 250ML 250 ML IV SCH ×2 (06:36→18:30)
[2022-07-12] MEDS: INSULIN REGULAR, HUMAN 100 UNIT/1 ML SQ SCH ×4 (07:30→20:36)
[2022-07-12] MEDS: ASPIRIN 81 MG CHEW TAB PO SCH (07:44)
[2022-07-12] MEDS: RAMIPRIL 5 MG CAP PO SCH ×2 (07:44→16:51)
[2022-07-12] MEDS: CYANOCOBALAMIN 1,000 MCG TAB PO SCH (07:45)
[2022-07-12] MEDS: CHOLECALCIFEROL 1,000 UNIT TAB PO SCH (07:45)
[2022-07-12] MEDS: GABAPENTIN 300 MG CAP PO SCH ×3 (07:45→20:33)
[2022-07-12] MEDS: MULTIVITAMINS/MINERALS TAB PO SCH (07:45)
[2022-07-12] MEDS: BACITRACIN ZINC 15 GM OINT TOP SCH (09:29)
[2022-07-12] MEDS ORDERED: BUPIVACAINE HCL 0.5% INJ 30 ML VIAL INJ ONE (12:23)
[2022-07-12] MEDS ORDERED: FENTANYL CITRATE/PF 100MCG/2 ML INJ ONE (12:38)
[2022-07-12] MEDS ORDERED: DEXAMETHASONE SOD PHOS INJ 4 MG/ML SDV ONE (13:01)
[2022-07-12] MEDS ORDERED: MUPIROCIN 2% OINT 22 GM TUBE ONE (13:19)
[2022-07-12] MEDS ORDERED: NEOSTIGMINE 1 MG/ML 10ML VIAL ONE (13:27)
[2022-07-12] MEDS ORDERED: SEVOFLURANE INHAL SOLN 250 ML PEN BTL ONE (13:27)
[2022-07-12] MEDS ORDERED: POVIDONE IODINE 0.05% 0.05 % ML PO ONE (13:27)
[2022-07-12] MEDS ORDERED: ONDANSETRON HCL INJ 2MG/ML 2ML 2 MG/ML VIAL ONE (13:27)
[2022-07-12] MEDS ORDERED: LIDOCAINE HCL 2% LOCAL INJ 5 ML SDV VIAL INJ ONE (13:27)
[2022-07-12] MEDS ORDERED: PROPOFOL IV EMULSION 10 MG/ML 20 ML VIAL ONE (13:27)
[2022-07-12] MEDS: ATORVASTATIN 20 MG TAB PO SCH (20:33)
[2022-07-12] MEDS: ESCITALOPRAM OXALATE 10 MG TAB PO SCH (20:33)
[2022-07-13] VITALS (8 sets, daily range): BP systolic 107–149; BP diastolic 60–80
[2022-07-13] MEDS: HYDROCODONE/APAP 10MG-325MG TAB PO PRN ×2 (00:17→17:01)
[2022-07-13 06:08] LABS: BASOPHILS % 0.3 % (0.0-1.0); EOSINOPHILS # (AUTO) 0.1 (0.0-0.4); EOSINOPHILS % 1.6 % (0.0-6.0); HEMATOCRIT 31.7 % (38.2-49.6); HEMOGLOBIN 10.4 g/dL (14.0-18.0); LYMPHOCYTES # (AUTO) 0.9 (1.0-3.2); LYMPHOCYTES % 28.3 % (18.0-39.1); MEAN CORPUSCULAR HEMOGLOBIN 30.4 pg (28-32); MEAN CORPUSCULAR HGB CONC 32.8 g/dL (31-35); MEAN CORPUSCULAR VOLUME 92.7 fL (81-99); MONOCYTES # (AUTO) 0.4 (0.2-0.8); NEUTROPHILS # (AUTO) 1.7 (2.1-6.9); NEUTROPHILS % 55.2 % (38.7-80.0); PLATELET COUNT 164 x10e3/uL (140-360); RED BLOOD COUNT 3.42 x10e6/uL (4.3-5.7); RED CELL DISTRIBUTION WIDTH 12.8 % (11.7-14.4)
[2022-07-13] MEDS: OMEPRAZOLE 20 MG CAP PO SCH (06:12)
[2022-07-13] MEDS: Vancomycin IV 1 GM in SODIUM CHLORIDE 0.9% 250ML 250 ML IV SCH (06:12)
[2022-07-13 06:35] LABS: ANION GAP 11.9 mmol/L (8-16); CALCIUM 8.7 mg/dL (8.4-10.2); CREATININE, SERUM 0.73 mg/dL (0.72-1.25); POTASSIUM 3.9 mmol/L (3.5-5.1)
[2022-07-13] MEDS: INSULIN REGULAR, HUMAN 100 UNIT/1 ML SQ SCH ×4 (07:30→21:00)
[2022-07-13] MEDS: ASPIRIN 81 MG CHEW TAB PO SCH (08:28)
[2022-07-13] MEDS: MULTIVITAMINS/MINERALS TAB PO SCH (08:28)
[2022-07-13] MEDS: GABAPENTIN 300 MG CAP PO SCH ×3 (08:28→21:17)
[2022-07-13] MEDS: CHOLECALCIFEROL 1,000 UNIT TAB PO SCH (08:28)
[2022-07-13] MEDS: CYANOCOBALAMIN 1,000 MCG TAB PO SCH (08:28)
[2022-07-13] MEDS: BACITRACIN ZINC 15 GM OINT TOP SCH (08:29)
[2022-07-13] MEDS: RAMIPRIL 5 MG CAP PO SCH ×2 (08:29→17:00)
[2022-07-13] MEDS ORDERED: SODIUM CHLORIDE 0.9% 250ML 250 ML ONE (11:29)
[2022-07-13] MEDS: DOXYCYCLINE HYCLATE TABLET 100 MG TAB PO SCH (17:00)
[2022-07-13] MEDS: CIPROFLOXACIN 500 MG TAB PO SCH (17:00)
[2022-07-13] MEDS: ATORVASTATIN 20 MG TAB PO SCH (21:16)
[2022-07-13] MEDS: ESCITALOPRAM OXALATE 10 MG TAB PO SCH (21:16)
[2022-07-14] VITALS: BP 143/85
[2022-07-14] MEDS: HYDROCODONE/APAP 10MG-325MG TAB PO PRN ×2 (01:14→09:09)
[2022-07-14 04:00] VITALS: BP 120/65
[2022-07-14] MEDS: OMEPRAZOLE 20 MG CAP PO SCH (05:41)
[2022-07-14] MEDS: INSULIN REGULAR, HUMAN 100 UNIT/1 ML SQ SCH ×2 (07:30→11:30)
[2022-07-14 08:00] VITALS: BP 142/81
[2022-07-14 08:55] VITALS: BP 142/81
[2022-07-14] MEDS: CHOLECALCIFEROL 1,000 UNIT TAB PO SCH (09:07)
[2022-07-14] MEDS: MULTIVITAMINS/MINERALS TAB PO SCH (09:07)
[2022-07-14] MEDS: DOXYCYCLINE HYCLATE TABLET 100 MG TAB PO SCH (09:07)
[2022-07-14] MEDS: RAMIPRIL 5 MG CAP PO SCH (09:08)
[2022-07-14] MEDS: ASPIRIN 81 MG CHEW TAB PO SCH (09:08)
[2022-07-14] MEDS: GABAPENTIN 300 MG CAP PO SCH (09:08)
[2022-07-14] MEDS: CYANOCOBALAMIN 1,000 MCG TAB PO SCH (09:08)
[2022-07-14] MEDS: CIPROFLOXACIN 500 MG TAB PO SCH (09:08)
[2022-07-14] MEDS: BACITRACIN ZINC 15 GM OINT TOP SCH (09:09)
[2022-07-14 11:17] VITALS: BP 123/74
[2022-07-14] MEDS ORDERED: DOXYCYCLINE HY100 MG PO (13:54)
[2022-07-14] MEDS ORDERED: CIPRO500 MG PO (13:55)
[2022-07-14] MEDS ORDERED: tylenol #3 PO (13:56)
[2022-07-14] MEDS ORDERED: MUPIROCIN 2% OINT 22 GM TUBE TOP SCH (17:00)
== END 2022-07-14 15:14 | disposition home or self-care (01) | DRG 629 ==
LOC: ER 17:42 → ERHOLD 18:46 → MED/SURG3 19:55
PROVIDERS: ADMIT Internal Medicine; ATTEND Internal Medicine
PROC: 0QBN0ZZ Excision of Right Metatarsal, Open Approach (ICD-10-PCS; principal; 2022-07-12 12:25)
DX: E11.69 Type 2 diabetes mellitus with other specified complication (principal); L03.115 Cellulitis of right lower limb; L97.516 Non-pressure chronic ulcer of other part of right foot with bone involvement without evidence of necrosis; M86.8X7 Other osteomyelitis, ankle and foot; I10 Essential (primary) hypertension; E78.5 Hyperlipidemia, unspecified; E83.42 Hypomagnesemia; E11.621 Type 2 diabetes mellitus with foot ulcer; E11.65 Type 2 diabetes mellitus with hyperglycemia; K21.9 Gastro-esophageal reflux disease without esophagitis; M10.9 Gout, unspecified; E87.6 Hypokalemia; M19.90 Unspecified osteoarthritis, unspecified site; E11.628 Type 2 diabetes mellitus with other skin complications
CPT/HCPCS: 36415; 71045; 76000; 80048; 80053; 80061; 80202; 81001; 82948; 83036; 83605; 83735; 84100; 84443; 84484; 85025; 87040; 87071; 87075; 87205; 88304; 88305; 88311; 93005; 99252; 99284; J1100; J2001; J2405; J2543; J2710; J3475; J7030; J7050